=== PATIENT | male | born 1985 ===

== ENCOUNTER 2018-03-21 14:01 | Emergency (ER) | payer SELFPAY ==
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
== END 2018-03-21 14:49 | disposition admitted as inpatient to this hospital (09) ==
LOC: ERH 14:01
DX: F32.9 Major depressive disorder, single episode, unspecified (principal)
CPT/HCPCS: 80307; G0480